=== PATIENT | male | born 1990 ===

== ENCOUNTER → 2017-08-15 | Outpatient (CLI) | payer OTHER ==
--- NOTE | 2017-08-15 11:18 | DIAGNOSTIC IMAGING REPORT ---
R HAND MIN 3 VIEWS CLINICAL HISTORY: Fifth metacarpal fracture COMPARISON: None. DISCUSSION: The fine bony details obscured by a fiberglass splint. There is a fifth metacarpal neck fracture with approximately 50 degrees of vertex dorsal angulation. Distal fragment is radially displaced x 3 mm. IMPRESSION: Minimally displaced angulated radial neck fracture. Fine detail obscured by an overlying fiberglass cast. Electronically signed by: Lupillo Whalen M.D. 08/15/2017 11:16 AM Dictated Date/Time: 08/15/2017 11:14 AM
== END ==
LOC: C.RDSM 11:05
PROVIDERS: ATTEND Physician Assistant
DX: S62.309A Unspecified fracture of unspecified metacarpal bone, initial encounter for closed fracture (principal); X58.XXXA Exposure to other specified factors, initial encounter